=== PATIENT | male | born 1960 | race Caucasian/White ===

== ENCOUNTER → 2016-06-23 | Outpatient (CLI) | payer BC, OTHER ==
[2016-06-23 07:00] LABS: MEAN CORPUSCULAR HEMOGLOBIN 29.5 pg (27.0-33.0); MEAN CORPUSCULAR HGB CONC 33.9 g/dl (32.0-36.5); RED CELL DISTRIBUTION WIDTH 13.7 % (11.5-14.5); WHITE BLOOD COUNT 4.3 K/mm3 (4.0-10.0)
[2016-06-23 07:14] LABS: INR 1.04
[2016-06-23 07:20] LABS: ALBUMIN 3.7 GM/DL (3.2-5.2); ALBUMIN/GLOBULIN RATIO 1.28 (1.00-1.93); ALKALINE PHOSPHATASE 60 U/L (45-117); ALT/SGPT 29 U/L (12-78); ANION GAP 8 MEQ/L (8-16); AST/SGOT 20 U/L (15-37); BLOOD UREA NITROGEN 22 MG/DL (7-18); CALCIUM LEVEL 8.6 MG/DL (8.5-10.1); CARBON DIOXIDE LEVEL 28 MEQ/L (21-32); CHLORIDE LEVEL 107 MEQ/L (98-107); CHOLESTEROL LEVEL 186 MG/DL (<200); CREATININE FOR GFR 1.02 MG/DL (0.70-1.30); GLOMERULAR FILTRATION RATE > 60.0 (>56); GLUCOSE, FASTING 93 MG/DL (70-105); POTASSIUM SERUM 4.3 MEQ/L (3.5-5.1); SODIUM LEVEL 143 MEQ/L (136-145); TOTAL PROTEIN 6.6 GM/DL (6.4-8.2); TRIGLYCERIDES LEVEL 85 MG/DL (<150)
--- NOTE | 2016-06-23 07:47 | REP ---
Clinical: COPD. Technique: PA and lateral. Comparison: 08/09/2014. Findings: Mediastinum and cardiac silhouette are stable. Lung schwartz demonstrate chronic changes compatible with COPD. No acute consolidation, effusion, or pneumothorax. Skeletal structures intact. Impression: Chronic COPD. No acute cardiopulmonary process. Signed by Ryan Zavaleta MD 06/23/2016 07:39 A
--- NOTE | 2016-06-24 16:56 | ECGEPIP ---
Stationary ECG Study [facility] Test Date: 2016-06-23 Pat Name: EDINSON CONNELL Department: Room: - Gender: M Rd Mechanical Engineer: MEME : 1960 Requested By: Netta Bethea Order Number: [id number] Reading MD: Elliott Edwards Measurements Intervals [place] Rate: 53 P: 55 PA: 176 QRS: -21 QRSD: 119 T: 39 QT: 424 QTc: 399 Interpretive Statements SINUS BRADYCARDIA LOW VOLTAGES BORDERLINE LEFT AXIS DEVIATION INCOMPLETE LBBB NO CHANGE FROM 09/25/15 Electronically Signed On 06-24-2016 16:56:17 EST by Elliott Edwards
== END ==
LOC: M LAB 06:16
PROVIDERS: ATTEND Family Medicine
DX: Z01.818 Encounter for other preprocedural examination (principal); E03.9 Hypothyroidism, unspecified

== ENCOUNTER → 2018-01-17 | Outpatient (CLI) | payer BC, OTHER ==
[2018-01-17 06:56] LABS: HEMATOCRIT 43.9 % (42.0-52.0); HEMOGLOBIN 15.1 g/dl (13.5-17.5); MEAN CORPUSCULAR HEMOGLOBIN 29.2 pg (27.0-33.0); MEAN CORPUSCULAR HGB CONC 34.4 g/dl (32.0-36.5); MEAN CORPUSCULAR VOLUME 84.7 fl (80.0-96.0); PLATELET COUNT, AUTOMATED 229 10^3/uL (150-450); RED BLOOD COUNT 5.18 10^6/uL (4.30-6.10); RED CELL DISTRIBUTION WIDTH 13.2 % (11.5-14.5); WHITE BLOOD COUNT 4.8 10^3/uL (4.0-10.0)
[2018-01-17 07:10] LABS: ESTIMATED AVERAGE GLUCOSE 111 MG/DL (60-110); HEMOGLOBIN A1c 5.5 %
[2018-01-17 07:23] LABS: ALBUMIN 3.7 GM/DL (3.2-5.2); ALBUMIN/GLOBULIN RATIO 1.12 (1.00-1.93); ALKALINE PHOSPHATASE 60 U/L (45-117); ALT/SGPT 32 U/L (12-78); ANION GAP 7 MEQ/L (8-16); AST/SGOT 19 U/L (7-37); BILIRUBIN,TOTAL 0.9 MG/DL (0.2-1.0); BLOOD UREA NITROGEN 16 MG/DL (7-18); CALCIUM LEVEL 8.3 MG/DL (8.5-10.1); CARBON DIOXIDE LEVEL 29 MEQ/L (21-32); CHLORIDE LEVEL 107 MEQ/L (98-107); CHOLESTEROL LEVEL 156 MG/DL (<200); CHOLESTEROL RISK RATIO 3.545 (<5); CREATININE FOR GFR 0.94 MG/DL (0.70-1.30); GLOMERULAR FILTRATION RATE > 60.0 (>56); GLUCOSE, FASTING 96 MG/DL (70-100); HDL CHOLESTEROL 44 MG/DL (>40); LDL CHOLESTEROL 89.6 MG/DL (<100); NON-HDL-C 112 MG/DL; POTASSIUM SERUM 4.1 MEQ/L (3.5-5.1); PROSTATIC SPECIFIC AG MONITOR 1.13 NG/ML (< 4.0); SODIUM LEVEL 143 MEQ/L (136-145); TRIGLYCERIDES LEVEL 112 MG/DL (<150)
[2018-01-17 09:12] LABS: TESTOSTERONE 661 NG/DL (241-827)
== END ==
LOC: M LAB 06:18
DX: I10 Essential (primary) hypertension (principal); J44.9 Chronic obstructive pulmonary disease, unspecified; R53.83 Other fatigue; E03.9 Hypothyroidism, unspecified; K21.9 Gastro-esophageal reflux disease without esophagitis; I73.9 Peripheral vascular disease, unspecified
CPT/HCPCS: 71046

== ENCOUNTER → 2018-01-18 | Outpatient (CLI) | payer BC, OTHER ==
[~2018-01-18] MED LIST: E-Z-GAS II EFFERVESCENT PACKET (SODIUM BICARB./CITRIC ACID/SIMETHICONE) As Ordered; E-Z-HD 98% w/w 340GM SUSP BTL As Ordered; E-Z-PAQUE 96% w/w SUSP 176GM BTL As Ordered
== END ==
LOC: M RAD 08:55
DX: I10 Essential (primary) hypertension (principal); J44.9 Chronic obstructive pulmonary disease, unspecified; R53.83 Other fatigue; E03.9 Hypothyroidism, unspecified; K21.9 Gastro-esophageal reflux disease without esophagitis; I73.9 Peripheral vascular disease, unspecified
CPT/HCPCS: 74241

== ENCOUNTER → 2018-01-25 | Outpatient (CLI) | payer BC, OTHER | LOC: M RAD 07:19 | DX: R91.1 Solitary pulmonary nodule (principal) | CPT/HCPCS: 71046 ==

== ENCOUNTER 2018-03-22 07:01 | Day surgery (SDC) | payer BC, OTHER ==
[~2018-03-22 07:01] MED LIST changes: -E-Z-GAS II EFFERVESCENT PACKET (SODIUM BICARB./CITRIC ACID/SIMETHICONE) As Ordered; -E-Z-HD 98% w/w 340GM SUSP BTL As Ordered; -E-Z-PAQUE 96% w/w SUSP 176GM BTL As Ordered; +NS 1,000 ML IV
[2018-03-22] MEDS ORDERED: PROPOFOL 200 MG/20 ML VIAL As Ordered ×3 (07:07→08:31)
[2018-03-22] MEDS ORDERED: LIDOCAINE 2% INJ 100 MG/5 ML SDV (FOR ANES.) As Ordered (07:07)
[2018-03-22] MEDS ORDERED: fentaNYL 100 MCG/2 ML INJECTION (J3010) As Ordered (08:05)
== END 2018-03-22 09:20 | disposition home or self-care (01) ==
LOC: M OPP 07:01
DX: Z12.11 Encounter for screening for malignant neoplasm of colon (principal); R13.10 Dysphagia, unspecified; R12 Heartburn; R63.0 Anorexia; R63.4 Abnormal weight loss; K22.8 Other specified diseases of esophagus; K22.2 Esophageal obstruction; K44.9 Diaphragmatic hernia without obstruction or gangrene; E03.9 Hypothyroidism, unspecified; K21.9 Gastro-esophageal reflux disease without esophagitis; R06.83 Snoring; Z79.899 Other long term (current) drug therapy
CPT/HCPCS: G0121

== ENCOUNTER → 2019-01-15 | Outpatient (CLI) | payer BC, OTHER ==
[~2019-01-15] MED LIST changes: +LEVO88TA3 PO; -NS 1,000 ML IV; +OMEP20CA4 PO
--- NOTE | 2019-01-15 15:37 | REP ---
Clinical: Pain. Bursitis. Technique: AP and lateral views of the left elbow. Findings: Posterior swelling consistent with bursitis. Osseous structures are intact and relatively normal. No obvious anterior fusion. Impression: Posterior swelling consistent with bursitis. Electronically Signed by Ryan Zavaleta MD 01/15/2019 03:28 P
[2019-01-15 17:06] LABS: BASO % 0.4 % (0.0-1.0); EOS % 0.3 % (0.0-3.0); HEMATOCRIT 41.9 % (42.0-52.0); HEMOGLOBIN 13.4 g/dl (13.5-17.5); MEAN CORPUSCULAR HEMOGLOBIN 25.7 pg (27.0-33.0); MEAN CORPUSCULAR VOLUME 80.3 fl (80.0-96.0); MONO # 0.8 10^3/uL (0.0-0.8); MONO % 10.5 % (0.0-5.0); NEUTROPHILS # 4.8 10^3/uL (1.8-7.7); NEUTROPHILS % 62.5 % (36.0-66.0); PLATELET COUNT, AUTOMATED 220 10^3/uL (150-450); RED BLOOD COUNT 5.22 10^6/uL (4.30-6.10); WHITE BLOOD COUNT 7.7 10^3/uL (4.0-10.0)
== END ==
LOC: M WUC 15:15
PROVIDERS: ATTEND Physician Assistant
DX: M70.22 Olecranon bursitis, left elbow (principal)

== ENCOUNTER → 2019-02-14 | Outpatient (CLI) | payer BC, OTHER ==
[2019-02-14 07:34] LABS: HEMATOCRIT 41.8 % (42.0-52.0); HEMOGLOBIN 13.8 g/dl (13.5-17.5); MEAN CORPUSCULAR HEMOGLOBIN 27.1 pg (27.0-33.0); PLATELET COUNT, AUTOMATED 154 10^3/uL (150-450); WHITE BLOOD COUNT 4.5 10^3/uL (4.0-10.0)
[2019-02-14 07:52] LABS: HEMOGLOBIN A1c 5.4 %
[2019-02-14 08:05] LABS: ALBUMIN 3.6 GM/DL (3.2-5.2); ALT/SGPT 41 U/L (12-78); BILIRUBIN,TOTAL 1.2 MG/DL (0.2-1.0); BLOOD UREA NITROGEN 21 MG/DL (7-18); CALCIUM LEVEL 8.5 MG/DL (8.5-10.1); CARBON DIOXIDE LEVEL 28 MEQ/L (21-32); CHLORIDE LEVEL 108 MEQ/L (98-107); CHOLESTEROL LEVEL 163 MG/DL (<200); CHOLESTEROL RISK RATIO 3.622 (<5); CREATININE FOR GFR 0.88 MG/DL (0.70-1.30); GLOMERULAR FILTRATION RATE > 60.0 (>56); GLUCOSE, FASTING 90 MG/DL (70-100); HDL CHOLESTEROL 45 MG/DL (>40); LDL CHOLESTEROL 99 MG/DL (<100); NON-HDL-C 118 MG/DL; POTASSIUM SERUM 4.2 MEQ/L (3.5-5.1); PROSTATIC SPECIFIC AG MONITOR 1.08 NG/ML (< 4.00); SODIUM LEVEL 142 MEQ/L (136-145); TOTAL PROTEIN 6.8 GM/DL (6.4-8.2); TRIGLYCERIDES LEVEL 97 MG/DL (<150)
[2019-02-14 09:57] LABS: TESTOSTERONE 585 NG/DL (241-827)
--- NOTE | 2019-02-14 10:46 | ECGEPIP ---
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
--- NOTE | 2019-02-14 12:03 | REP ---
Clinical: Hypertension and fatigue. Comparison: 01/25/2018 . Technique: PA and lateral. Findings: The mediastinum and cardiac silhouette are normal. The lung schwartz demonstrate stable chronic-appearing changes without acute consolidation, effusion, or pneumothorax. The skeletal structures are intact and normal. Impression: 1. No acute cardiopulmonary process. Electronically Signed by Ryan Zavaleta MD 02/14/2019 07:37 A
== END ==
LOC: M LAB 06:39
PROVIDERS: ATTEND Family Medicine
DX: R53.83 Other fatigue (principal); I10 Essential (primary) hypertension

== ENCOUNTER → 2020-03-20 | Outpatient (CLI) | payer BC, OTHER ==
[~2020-03-20] MED LIST changes: +OMEP1CAP73 PO; -OMEP20CA4 PO
[2020-03-20 07:42] LABS: HEMATOCRIT 34.6 % (42.0-52.0); HEMOGLOBIN 10.1 g/dl (13.5-17.5); MEAN CORPUSCULAR HEMOGLOBIN 22.1 pg (27.0-33.0); MEAN CORPUSCULAR HGB CONC 29.2 g/dl (32.0-36.5); MEAN CORPUSCULAR VOLUME 75.5 fl (80.0-96.0); PLATELET COUNT, AUTOMATED 247 10^3/uL (150-450); RED BLOOD COUNT 4.58 10^6/uL (4.30-6.10); WHITE BLOOD COUNT 4.5 10^3/uL (4.0-10.0)
[2020-03-20 07:55] LABS: ALBUMIN 3.8 GM/DL (3.2-5.2); ALT/SGPT 27 U/L (12-78); BLOOD UREA NITROGEN 23 MG/DL (7-18); CALCIUM LEVEL 8.5 MG/DL (8.5-10.1); CARBON DIOXIDE LEVEL 29 MEQ/L (21-32); CHLORIDE LEVEL 109 MEQ/L (98-107); CHOLESTEROL LEVEL 184 MG/DL (<200); CHOLESTEROL RISK RATIO 3.538 (<5); CREATININE FOR GFR 0.94 MG/DL (0.70-1.30); GLOMERULAR FILTRATION RATE > 60.0 (>56); GLUCOSE, FASTING 95 MG/DL (70-100); HDL CHOLESTEROL 52 MG/DL (>40); LDL CHOLESTEROL 112 MG/DL (<100); NON-HDL-C 132 MG/DL; POTASSIUM SERUM 4.5 MEQ/L (3.5-5.1); PROSTATIC SPECIFIC AG MONITOR 1.34 NG/ML (< 4.00); SODIUM LEVEL 142 MEQ/L (136-145); TOTAL PROTEIN 7.1 GM/DL (6.4-8.2); TRIGLYCERIDES LEVEL 99 MG/DL (<150)
[2020-03-20 08:05] LABS: HEMOGLOBIN A1c 5.4 %
[2020-03-20 10:49] LABS: TESTOSTERONE 863 NG/DL (241-827)
--- NOTE | 2020-03-23 11:26 | ECGEPIP ---
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
--- NOTE | 2020-03-26 16:28 | REP ---
CHEST X-RAY: 2-VIEWS HISTORY: Hypertension. COMPARISON: Chest x-ray 02/14/2019. FINDINGS: The lungs remain well-inflated and clear. The pleural angles are sharp. Cardiomediastinal silhouette is unremarkable and unchanged. Pulmonary vasculature is not increased. There is an orthopedic anchoring device in the right humeral head as before. No acute bony abnormality is seen. IMPRESSION: No active disease. MTDD
== END ==
LOC: M LAB 06:43
PROVIDERS: ATTEND Family Medicine
DX: E03.9 Hypothyroidism, unspecified (principal); I10 Essential (primary) hypertension; R94.31 Abnormal electrocardiogram [ECG] [EKG]

== ENCOUNTER → 2021-03-27 | Outpatient (CLI) | payer BC, OTHER ==
[2021-03-27 07:46] LABS: HEMATOCRIT 39.9 % (42.0-52.0); HEMOGLOBIN 12.6 g/dl (13.5-17.5); MEAN CORPUSCULAR HEMOGLOBIN 25.3 pg (27.0-33.0); MEAN CORPUSCULAR HGB CONC 31.6 g/dl (32.0-36.5); MEAN CORPUSCULAR VOLUME 80.1 fl (80.0-96.0); PLATELET COUNT, AUTOMATED 236 10^3/uL (150-450); RED BLOOD COUNT 4.98 10^6/uL (4.30-6.10); WHITE BLOOD COUNT 4.2 10^3/uL (4.0-10.0)
--- NOTE | 2021-03-27 07:56 | REP ---
INDICATION: HTN- LABS AND EKG FIRST. COMPARISON: 03/20/2020 FINDINGS: The superior mediastinal structures are midline. The cardiac silhouette is unremarkable in size, shape, and position. The diaphragmatic surfaces of the lungs are regular, and the costophrenic angles are clear. The pulmonary schwartz are clear. The imaged osseous structures are intact. IMPRESSION: There is no acute cardiopulmonary disease. <Electronically signed by Floyd Noe > 03/27/21 [id number]
[2021-03-27 08:19] LABS: ALBUMIN 3.6 GM/DL (3.2-5.2); ALT/SGPT 27 U/L (12-78); BILIRUBIN,TOTAL 1.2 MG/DL (0.2-1.0); BLOOD UREA NITROGEN 23 MG/DL (7-18); CARBON DIOXIDE LEVEL 28 MEQ/L (21-32); CHLORIDE LEVEL 109 MEQ/L (98-107); CHOLESTEROL LEVEL 174 MG/DL (<200); CHOLESTEROL RISK RATIO 3.551 (<5); GLOMERULAR FILTRATION RATE > 60.0 (>49); GLUCOSE, FASTING 89 MG/DL (70-100); HDL CHOLESTEROL 49 MG/DL (>40); HEMOGLOBIN A1c 5.3 %; LDL CHOLESTEROL 106 MG/DL (<100); NON-HDL-C 125 MG/DL; POTASSIUM SERUM 5.2 MEQ/L (3.5-5.1); PROSTATIC SPECIFIC AG MONITOR 1.07 NG/ML (< 4.00); SODIUM LEVEL 140 MEQ/L (136-145); TOTAL PROTEIN 6.9 GM/DL (6.4-8.2); TRIGLYCERIDES LEVEL 93 MG/DL (<150)
[2021-03-27 09:00] LABS: TESTOSTERONE 684 NG/DL (241-827)
--- NOTE | 2021-03-27 09:05 | ECGEPIP ---
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
== END ==
LOC: M LAB 06:44
PROVIDERS: ATTEND Family Medicine
DX: E03.9 Hypothyroidism, unspecified (principal); R00.1 Bradycardia, unspecified; R53.83 Other fatigue; I10 Essential (primary) hypertension

== ENCOUNTER → 2022-04-08 | Outpatient (CLI) | payer BC, OTHER ==
[2022-04-08 07:47] LABS: HEMOGLOBIN 13.7 g/dl (13.5-17.5); MEAN CORPUSCULAR HEMOGLOBIN 25.9 pg (27.0-33.0); MEAN CORPUSCULAR HGB CONC 31.9 g/dl (32.0-36.5); MEAN CORPUSCULAR VOLUME 81.3 fl (80.0-96.0); PLATELET COUNT, AUTOMATED 202 10^3/uL (150-450); RED BLOOD COUNT 5.29 10^6/uL (4.30-6.10); WHITE BLOOD COUNT 4.2 10^3/uL (4.0-10.0)
[2022-04-08 08:19] LABS: HEMOGLOBIN A1c 5.3 %
[2022-04-08 08:26] LABS: ALBUMIN 3.7 GM/DL (3.2-5.2); ALT/SGPT 25 U/L (12-78); BILIRUBIN,TOTAL 1.2 MG/DL (0.2-1.0); BLOOD UREA NITROGEN 19 MG/DL (7-18); CALCIUM LEVEL 8.8 MG/DL (8.8-10.2); CARBON DIOXIDE LEVEL 28 MEQ/L (21-32); CHLORIDE LEVEL 105 MEQ/L (98-107); CHOLESTEROL LEVEL 160 MG/DL (<200); CHOLESTEROL RISK RATIO 3.137 (<5); CREATININE FOR GFR 1.01 MG/DL (0.70-1.30); GLOMERULAR FILTRATION RATE > 60.0 (>49); GLUCOSE, FASTING 98 MG/DL (70-100); HDL CHOLESTEROL 51 MG/DL (>40); LDL CHOLESTEROL 95 MG/DL (<100); NON-HDL-C 109 MG/DL; POTASSIUM SERUM 4.4 MEQ/L (3.5-5.1); PROSTATIC SPECIFIC AG MONITOR 0.93 NG/ML (< 4.00); SODIUM LEVEL 137 MEQ/L (136-145); TRIGLYCERIDES LEVEL 68 MG/DL (<150)
[2022-04-08 09:10] LABS: TESTOSTERONE 635 NG/DL (241-827)
== END ==
LOC: M LAB 06:59
PROVIDERS: ATTEND Family Medicine
DX: I10 Essential (primary) hypertension (principal); R53.83 Other fatigue; E03.9 Hypothyroidism, unspecified

== ENCOUNTER → 2022-07-22 | Outpatient (CLI) | payer BC, OTHER ==
[~2022-07-22] MED LIST changes: +E-Z-GAS II EFFERVESCENT PACKET (SODIUM BICARB./CITRIC ACID/SIMETHICONE) As Ordered ONE; +E-Z-HD 98% w/w 340GM SUSP BTL As Ordered ONE; +E-Z-PAQUE 96% w/w SUSP 176GM BTL As Ordered ONE
== END ==
LOC: M RAD 08:59
PROVIDERS: ATTEND Family Medicine
DX: K21.9 Gastro-esophageal reflux disease without esophagitis (principal); R13.10 Dysphagia, unspecified

== ENCOUNTER 2022-12-08 12:03 | Day surgery (SDC) | payer BC, OTHER ==
[~2022-12-08] VITALS: Ht 182.9 cm; Wt 87.9 kg
[~2022-12-08 12:03] MED LIST changes: -E-Z-GAS II EFFERVESCENT PACKET (SODIUM BICARB./CITRIC ACID/SIMETHICONE) As Ordered ONE; -E-Z-HD 98% w/w 340GM SUSP BTL As Ordered ONE; -E-Z-PAQUE 96% w/w SUSP 176GM BTL As Ordered ONE; +NS 1,000 ML IV ONE; +OMEP40CA5 PO
[2022-12-08] MEDS ORDERED: fentaNYL 100 MCG/2 ML INJECTION As Ordered ONE (14:03)
[2022-12-08] MEDS ORDERED: propofoL 200 MG/20 ML VIAL As Ordered ONE (14:04)
[2022-12-08 14:35] VITALS: TEMP 96.9
[2022-12-08 14:52] VITALS: BP 124/80; O2SAT 98
[2022-12-08] MEDS ORDERED: ePHEDrine SULFATE 25 MG/5 ML(5MG/ML) SYRINGE As Ordered ONE (14:55)
== END 2022-12-08 14:54 | disposition home or self-care (01) ==
LOC: M OPP 12:03
PROVIDERS: ATTEND Internal Medicine Gastroenterology
DX: K22.70 Barrett's esophagus without dysplasia (principal); K22.89 Other specified disease of esophagus; K44.9 Diaphragmatic hernia without obstruction or gangrene; K22.2 Esophageal obstruction; Z79.890 Hormone replacement therapy; Z79.899 Other long term (current) drug therapy
CPT/HCPCS: 43239; 88305; J3010

== ENCOUNTER → 2023-04-28 | Outpatient (CLI) | payer BC, OTHER ==
[~2023-04-28] MED LIST changes: -NS 1,000 ML IV ONE
[2023-04-28 07:21] LABS: HEMATOCRIT 41.5 % (42.0-52.0); HEMOGLOBIN 13.1 g/dl (13.5-17.5); MEAN CORPUSCULAR HGB CONC 31.6 g/dl (32.0-36.5); PLATELET COUNT, AUTOMATED 259 10^3/uL (150-450); RED BLOOD COUNT 5.25 10^6/uL (4.30-6.10); WHITE BLOOD COUNT 4.5 10^3/uL (4.0-10.0)
[2023-04-28 07:50] LABS: ALBUMIN 3.8 G/DL (3.2-5.2); ALKALINE PHOSPHATASE 61 U/L (46-116); ALT/SGPT 21 U/L (7.0-40); AST/SGOT 22 U/L (<34); BLOOD UREA NITROGEN 18 MG/DL (9-23); CALCIUM LEVEL 9.2 MG/DL (8.3-10.6); CARBON DIOXIDE LEVEL 29 MMOL/L (20-31); CHLORIDE LEVEL 104 MMOL/L (98-107); CHOLESTEROL LEVEL 187 MG/DL (<200); CHOLESTEROL RISK RATIO 4.45 (<5); CREATININE FOR GFR 0.89 MG/DL (0.70-1.30); GLOMERULAR FILTRATION RATE > 60.0 (>49); GLUCOSE, FASTING 98 MG/DL (74-106); LDL CHOLESTEROL 123.8 MG/DL (<100); POTASSIUM SERUM 4.2 MMOL/L (3.5-5.1); PROSTATIC SPECIFIC AG MONITOR 0.65 NG/ML (< 4.00); SODIUM LEVEL 139 MMOL/L (136-145); TESTOSTERONE 704 NG/DL (241-827); THYROID STIMULATING HORMONE 1.797 uIU/ML (0.55-4.78); TOTAL PROTEIN 6.9 G/DL (5.7-8.2); TRIGLYCERIDES LEVEL 106 MG/DL (<150)
[2023-04-28 08:21] LABS: HEMOGLOBIN A1c 5.1 % (4.0-6.0)
== END ==
LOC: M RAD 06:40
PROVIDERS: ATTEND Family Medicine
DX: J44.9 Chronic obstructive pulmonary disease, unspecified (principal); R53.83 Other fatigue; D64.9 Anemia, unspecified

== ENCOUNTER → 2024-02-23 | Outpatient (REF) | payer OTHER, BC ==
[2024-02-23 15:06] LABS: PERCENT SATURATION 7.9 % (19.7-50.0)
[2024-02-23 15:11] LABS: FERRITIN 5.6 NG/ML (10.5-307.3)
== END ==
LOC: M LAB REF 13:27
PROVIDERS: ATTEND Internal Medicine
DX: E61.1 Iron deficiency (principal)

== ENCOUNTER → 2024-02-24 | Outpatient (CLI) | payer BC, OTHER | LOC: M WUC 08:22 | PROVIDERS: ATTEND Internal Medicine | DX: M25.561 Pain in right knee (principal) ==

== ENCOUNTER 2024-05-16 09:50 | Day surgery (SDC) | payer BC ==
[~2024-05-16] VITALS: Ht 185.4 cm; Wt 88.9 kg
[~2024-05-16 09:50] MED LIST changes: +FERR325T3 PO; +MULT-90 PO
[2024-05-16 11:22] VITALS: TEMP 98
[2024-05-16] MEDS ORDERED: fentaNYL 100 MCG/2 ML INJECTION As Ordered ONE (11:37)
[2024-05-16] MEDS ORDERED: propofoL 200 MG/20 ML VIAL As Ordered ONE (11:37)
[2024-05-16] MEDS ORDERED: LIDOCAINE 2% 100MG/5ML SDV (FOR ANES.) As Ordered ONE (11:37)
[2024-05-16 11:44] VITALS: BP 134/75; O2SAT 96
== END 2024-05-16 11:46 | disposition home or self-care (01) ==
LOC: M OPP 09:50
PROVIDERS: ATTEND Internal Medicine Gastroenterology
DX: K22.2 Esophageal obstruction (principal); K44.9 Diaphragmatic hernia without obstruction or gangrene; K22.89 Other specified disease of esophagus; R13.10 Dysphagia, unspecified; K21.9 Gastro-esophageal reflux disease without esophagitis; E03.9 Hypothyroidism, unspecified; Z79.890 Hormone replacement therapy; Z79.899 Other long term (current) drug therapy
CPT/HCPCS: 43249; J3010

== ENCOUNTER → 2024-09-14 | Outpatient (REF) | payer OTHER ==
[2024-09-14 16:03] LABS: PERCENT SATURATION 23.4 % (19.7-50.0)
== END ==
LOC: M LAB REF 14:32
PROVIDERS: ATTEND Internal Medicine
DX: E61.1 Iron deficiency (principal)

== ENCOUNTER → 2025-03-14 | Outpatient (REF) | payer BC, OTHER ==
[2025-03-14 15:15] LABS: IRON (FE) 119.0 UG/DL (65-175); PERCENT SATURATION 34.5 % (19.7-50.0)
== END ==
LOC: M LAB REF 13:14
PROVIDERS: ATTEND Internal Medicine
DX: E61.1 Iron deficiency (principal)